=== PATIENT | female | born 1960 | race Two or more races ===

== ENCOUNTER → 2017-04-18 | Outpatient (CLI) | payer MEDICARE ==
[~2017-04-18] MED LIST: ACETAMINOPHEN500 M3 PO; ALPRAZOLAM PO; BENADRYL PO; FAMOTIDINE PO; FERROUS SULFATE PO; HYDROCORTISONE-30 GM TOP; IBUPROFEN PO; KEFLEX PO; LORATADINE PO; MEDROL DOSEPAK4 MG PO; MEDROL PO; PRIMACORT TOP; RETIN A MICRO TOP; SINGULAIR PO; ZANTAC PO
--- NOTE | ~2017-04-18 | US85 ---
[facility] A Service of [facility] RADIOLOGY TEXT RESULTS PATIENT: NANCI FLOOD LOCATION: SNIV : 56 UNIT #: [id number] AGE: [address]: Charley Verma MD SEX: F ORDER DR: [id number] [place] [id number] O MR#: [id number] Acc #: [id number] NAME: NANCI FLOOD : 1960 SEX: F STUDY DATE/TIME: 04/18/2017 14:23 UNIT: SNIV ROOM: STUDY DESCRIPTION: [facility] or [facility] Attending Physician: Charley Verma M.D. Referring Physician: Charley Verma M.D. Ordering Physician: Charley Verma M.D. Primary Care Physician: Charley Verma M.D. MEDICAL IMAGING REPORT This report is preliminary unless electronic signature is present. EXAM Unilateral right lower extremity venous Doppler HISTORY Right leg pain for 1 week. Prior history of DVT 30 years ago. TECHNIQUE Venous ultrasound examination of the right lower extremity was performed using grayscale, spectral Doppler and color flow Doppler imaging. FINDINGS The examination is negative. There is no evidence of right lower extremity deep venous thrombus from the groin to the lower calf. Visualized greater saphenous vein is also patent. IMPRESSION Negative examination. No evidence of right lower extremity deep venous thrombosis. Dictated by... Burak Calderon M.D. THIS IS AN ELECTRONICALLY VERIFIED REPORT Burak Calderon M.D. at 04/21/2017 2:20 PM TEV/psc TD: 04/18/2017 21:12 JOB #: [id number] [facility] A Service [facility] RADIOLOGY TEXT RESULTS PATIENT: NANCI FLOOD LOCATION: SNIV : 56 UNIT #: [id number] AGE: [address]: Charley Verma MD SEX: F ORDER DR: MEDICAL IMAGING REPORT Page 1 of 1
== END | disposition home or self-care (01) ==
LOC: SNIV 13:59
DX: M25.569 Pain in unspecified knee (principal); M54.9 Dorsalgia, unspecified; M79.604 Pain in right leg
CPT/HCPCS: 93971